=== PATIENT | male | born 1945 | race Caucasian/White ===

== ENCOUNTER 2022-03-22 07:48 | Inpatient (IN) | payer MEDICARE, BC ==
[2022-03-22] MEDS ORDERED: Magnesium 2 GM/50 ML BAG (IN WATER) ONE (08:16)
[2022-03-22] MEDS ORDERED: Racepinephrine 2.25% 0.5 ML NEB ONE (08:18)
[2022-03-22 08:22] LABS: #Eosinphils 0.2 10x3/uL (0.0-0.5); #Monocytes 0.6 10x3/uL (0.0-1.1); #Neutrophils 9.8 10x3/uL (1.5-8.4); %Basophils 0.3 % (0.0-2.0); %Eosinophils 1.4 % (0.0-6.0); %Lymphocytes 10.4 % (18.0-47.0); %Monocytes 4.7 % (0.0-10.0); %Neutrophils 82.7 % (40.0-75.0); Hemoglobin 11.3 g/dL (13.5-17.5); Mean Corpuscular HGB CONC 32.8 g/dL (32.0-36.0); Mean Corpuscular Hemoglobin 30.2 pg (27.0-33.0); Mean Platelet Volume 10.4 fl (7.4-10.4); Platelet Count 308 10x3/uL (150-450); RBC Distribution Width 14.8 % (11.5-14.5); Red Blood Cell (RBC) Count 3.74 10x6/uL (4.32-5.72); White Blood Cell (WBC) Count 11.8 10x3/uL (3.5-10.5)
[2022-03-22 08:44] LABS: ALT (SGPT) 38 U/L (8-55); AST (SGOT) 31 U/L (5-34); Albumin 3.4 g/dL (3.4-4.8); Alkaline Phosphatase 107 U/L (40-110); Anion Gap 15 mmol/L (10-20); BUN (Urea Nitrogen) 29 mg/dL (8.4-25.7); Bilirubin, Total 0.6 mg/dL (0.2-1.2); Calc. Creatinine Clearance 0 mL/min (70-130); Calcium 8.7 mg/dL (7.8-10.44); Carbon Dioxide 21 mmol/L (23-31); Chloride 102 mmol/L (98-107); Estimated GFR 94; Globulin 2.2 g/dL (2.4-3.5); Glucose 89 mg/dL (83-110); Protein, Total 5.6 g/dL (5.8-8.1); Sodium 134 mmol/L (136-145)
[2022-03-22 08:51] LABS: Actual Bicarbonate (HCO3v) 25 mEq/L (22-28); Base Excess -0.9 mEq/L (-2.0 to +3.0); Calcium, Ionized (venous) 1.09 mmol/L (1.16-1.32); Chloride (VBG) 99 mmol/L (98-106); Hemoglobin (Hb) 12.8 g/dL (12.6-17.4); Puncture Site Other Site; Sodium 131.4 mmol/L (133-146); pH (venous) 7.36 (7.32-7.43)
[2022-03-22] MEDS ORDERED: Aspirin Chewable 81 MG TAB ONE (09:18)
[2022-03-22 09:19] LABS: CKMB 6.8 ng/mL (0-6.6)
[2022-03-22] MEDS ORDERED: Vancomycin 1.5 GRAM/300 ML BAG 1.5 GM in Premix Bag 1 BAG IVPB SCH (09:45)
[2022-03-22] MEDS ORDERED: Cefepime 2 GM in Sodium Chloride 0.9% 100 ML IVPB SCH (09:45)
[2022-03-22 10:09] LABS: SARS-CoV-2 NAA Rapid Test Not Detected (NotDetected)
[2022-03-22] MEDS ORDERED: HYDROcodone/Acetaminophen 5/325 mg Tablet PO PRN (10:13)
[2022-03-22] MEDS ORDERED: Guaifenesin DM 100-10/5 ML UDCUP PO PRN (10:13)
[2022-03-22] MEDS ORDERED: Ondansetron PF 4 MG/2 ML Vial IVP PRN (10:13)
[2022-03-22] MEDS ORDERED: Senokot S 8.6-50 MG TAB PO PRN (10:13)
[2022-03-22] MEDS ORDERED: Acetaminophen 325 MG TAB PO PRN (10:13)
[2022-03-22] MEDS ORDERED: Nicotine 14 MG PATCH TD SCH (10:15)
[2022-03-22] MEDS ORDERED: Communication Order-Pharmacy FS SCH (11:00)
[2022-03-22] MEDS ORDERED: Calcium Chloride 1 GM/10 ML Abboject SYRINGE ONE (11:00)
[2022-03-22] MEDS ORDERED: EPINEPHrine 1 MG/10 ML Abboject SYRINGE ONE (11:00)
[2022-03-22] MEDS ORDERED: Sodium Bicarb 50 MEQ/50 ML Abboject 8.4% SYRINGE ONE (11:00)
[2022-03-22] MEDS ORDERED: Furosemide 20 MG/2 ML VIAL SLOW IVP SCH (11:00)
[2022-03-22] MEDS ORDERED: Furosemide 40 MG/4 ML VIAL ONE (11:03)
[2022-03-22] MEDS ORDERED: Nitroglycerin 50 MG/250 ML BOT 250 ML ONE (11:07)
[2022-03-22] MEDS ORDERED: Lidocaine 1% MPF 2 ML VIAL ONE (11:07)
[2022-03-22] MEDS ORDERED: Heparin 10,000 UNITS/ 10 ML VIAL ONE ×2 (11:07→12:23)
[2022-03-22] MEDS ORDERED: Verapamil 5 MG/2 ML VIAL ONE (11:08)
[2022-03-22] MEDS ORDERED: Sodium Chloride 0.9% 1,000 ML ONE (11:09)
[2022-03-22] MEDS ORDERED: Bivalirudin 250 MG VIAL ONE (11:09)
[2022-03-22] MEDS ORDERED: Adenosine 6 MG/2 ML VIAL ONE (11:09)
[2022-03-22 11:20] LABS: Lactic Acid 6.1 mmol/L (0.5-2.2)
[2022-03-22] MEDS ORDERED: Fentanyl 100 MCG/2 ML VIAL ONE (11:43)
[2022-03-22] MEDS ORDERED: Midazolam HCl 2 mg/2 ml Vial ONE (11:44)
[2022-03-22] MEDS ORDERED: DOBUTamine 500 mg/250 ml 250 ML ONE (11:46)
[2022-03-22] MEDS ORDERED: Iopamidol 300 61% 100 ML VIAL FS ONE (12:00)
[2022-03-22] MEDS ORDERED: DOBUTamine 500 mg/250 ml 250 ML IVPB SCH (12:00)
[2022-03-22] MEDS ORDERED: Aztreonam 2 GM in Sodium Chloride 0.9% 100 ML IVPB SCH (12:00)
[2022-03-22] MEDS ORDERED: Lidocaine 1% 20 ML MDV ONE (12:01)
[2022-03-22] MEDS ORDERED: Norepinephrine 8 MG/0.9% NS 250 ML ONE (12:13)
[2022-03-22] MEDS ORDERED: TICAGRELOR 90 MG TABLET ONE (12:13)
[2022-03-22] MEDS ORDERED: Mometasone 200 MCG/Formoterol 5 MCG 120 PUFF INHALER INH SCH (18:30)
[2022-03-22] MEDS ORDERED: Vancomycin 1 GM in Premix Bag 1 BAG IVPB SCH ×2 (18:31→21:00)
[2022-03-22] MEDS ORDERED: Famotidine 20 MG TAB PO SCH (21:00)
[2022-03-22] MEDS ORDERED: Atorvastatin Calcium 40 MG TAB PO SCH (21:00)
[2022-03-23] MEDS ORDERED: Aspirin Chewable 81 MG TAB PO SCH (09:00)
== END 2022-03-22 12:45 | disposition expired | DRG 853 ==
LOC: CSHERS 07:48 → SUATTDRO 07:48 → CSHERHOLD 09:44
PROVIDERS: ADMIT Internal Medicine Geriatric Medicine; ATTEND Internal Medicine Geriatric Medicine
PROC: 02723ZZ Dilation of Coronary Artery, Three Arteries, Percutaneous Approach (ICD-10-PCS; principal; 2022-03-22)
PROC: 02C03ZZ Extirpation of Matter from Coronary Artery, One Artery, Percutaneous Approach (ICD-10-PCS; 2022-03-22)
PROC: 5A12012 Performance of Cardiac Output, Single, Manual (ICD-10-PCS; 2022-03-22)
PROC: 4A023N7 Measurement of Cardiac Sampling and Pressure, Left Heart, Percutaneous Approach (ICD-10-PCS; 2022-03-22)
PROC: B2111ZZ Fluoroscopy of Multiple Coronary Arteries using Low Osmolar Contrast (ICD-10-PCS; 2022-03-22)
PROC: 3E033XZ Introduction of Vasopressor into Peripheral Vein, Percutaneous Approach (ICD-10-PCS; 2022-03-22)
PROC: 0BH18EZ Insertion of Endotracheal Airway into Trachea, Via Natural or Artificial Opening Endoscopic (ICD-10-PCS; 2022-03-22)
PROC: 5A1935Z Respiratory Ventilation, Less than 24 Consecutive Hours (ICD-10-PCS; 2022-03-22)
DX: A41.9 Sepsis, unspecified organism (principal); I21.4 Non-ST elevation (NSTEMI) myocardial infarction; J96.01 Acute respiratory failure with hypoxia; I50.21 Acute systolic (congestive) heart failure; J69.0 Pneumonitis due to inhalation of food and vomit; I69.354 Hemiplegia and hemiparesis following cerebral infarction affecting left non-dominant side; J44.1 Chronic obstructive pulmonary disease with (acute) exacerbation; R65.20 Severe sepsis without septic shock; N40.0 Benign prostatic hyperplasia without lower urinary tract symptoms; Z20.822 Contact with and (suspected) exposure to COVID-19; E78.5 Hyperlipidemia, unspecified; F03.90 Unspecified dementia, unspecified severity, without behavioral disturbance, psychotic disturbance, mood disturbance, and anxiety; I25.10 Atherosclerotic heart disease of native coronary artery without angina pectoris; I35.0 Nonrheumatic aortic (valve) stenosis; I49.01 Ventricular fibrillation; I46.2 Cardiac arrest due to underlying cardiac condition; I11.0 Hypertensive heart disease with heart failure; I27.20 Pulmonary hypertension, unspecified; Z86.79 Personal history of other diseases of the circulatory system; Z87.898 Personal history of other specified conditions; Z88.1 Allergy status to other antibiotic agents; Z86.16 Personal history of COVID-19; Z79.899 Other long term (current) drug therapy; Z87.891 Personal history of nicotine dependence
CPT/HCPCS: 31500; 36415; 71045; 80053; 82553; 82805; 83605; 83880; 84484; 85025; 85347; 87040; 92920; 92973; 93005; 93306; 93454; 94760; 96374; 96375; C1725; C1769; C1887; C1894; J0153; J0171; J0583; J0692; J1250; J1644; J1940; J1956; J2250; J3010; J3370; J3475; J3490; J7050; J7620; Q9967